=== PATIENT | female | born 1960 | race Caucasian/White ===

== ENCOUNTER 2019-11-01 09:50 | Emergency (ER) | payer OTHER, SELFPAY ==
[2019-11-01] VITALS (9 sets, daily range): BP systolic 116–190; BP diastolic 58–88; PULSE 59–103; RESP 15–27; TEMP 36.1; O2SAT 96–99; BMI 30.3
--- NOTE | 2019-11-01 10:07 | ED.NAVMDI ---
HPI - Nausea/Vomiting/Diarrhea General Chief complaint: Nausea/Vomiting/Diarrhea Stated complaint: diarrhea x21 days Time Seen by Provider: 11/01/19 09:55 Source: patient and family History of Present Illness HPI Narrative: Patient here with . Complains of watery, brown, nonbloody, not black, diarrhea for the past 21 days. 3-8 episodes daily. No dizziness no syncope. Denies abdominal pain. No fever or chills. No sick contacts. No contaminated foods no foreign travel no changes in diet or medications. No relief with [id number] antidiarrheals. Related Data Previous Rx's Medication Instructions Recorded diphenoxylate-atropine [Lomotil] 1 tab PO DAILY #3 tab 11/01/19 potassium chloride [Klor-Con M20] 20 meq PO BID #14 tab 11/01/19 Allergies Allergy/AdvReac Type Severity Reaction Status Date / Time No Known Drug Allergies Allergy Verified 11/01/19 10:09 Review of Systems Review of Systems Narrative: GENERAL: Denies chills, fatigue, malaise, fever, sweats. HEENT: Denies sinus pain, ear pain, sore throat, difficulty swallowing, dizziness. RESPIRATORY: Denies dyspnea, cough, wheezing, hemoptysis, sputum. CARDIOVASCULAR: Denies chest pain, palpitations, orthopnea, edema, GASTROINTESTINAL: Denies nausea, vomiting, abdominal pain, constipation, melena. Complains of diarrhea : Denies dysuria, frequency, incontinence, hematuria, urinary retention. MUSCULOSKELETAL: denies weakness, joint pain, or bony pain SKIN: Denies rash, skin lesions, or other NEUROLOGIC: Denies weakness, headache, numbness, change in speech, confusion, seizures, incoordination. PSYCHIATRIC: No concerning psychosocial issues. ROS Unobtainable: All systems reviewed & are unremarkable except as noted in HPI and below Patient History Social History Smoking Status: Current every day smoker Exam Narrative Exam Narrative: GENERAL: patient appears stated age. Well-nourished, well-developed patient, in no distress, not toxic HEAD: Atraumatic. Normocephalic. EYES: Pupils equal round and reactive. Extraocular motions intact. No scleral icterus. No injection or drainage. ENT: Nose without bleeding, purulent drainage. Throat without erythema, tonsillar hypertrophy or exudate. Airway patent. NECK: Trachea midline. Non tender CARDIOVASCULAR: Regular rate and rhythm without murmurs, gallops, or rubs. RESPIRATORY: Clear to auscultation. Breath sounds equal bilaterally. No wheezes, rales, or rhonchi. GASTROINTESTINAL: Abdomen soft, non-tender, nondistended. No peritoneal signs. Normal bowel sounds EXTREMITIES: No edema or joint tenderness. BACK: Nontender without deformity or crepitance. No flank tenderness. NEURO: AOx3. SKIN: No rash or erythema of visible areas PSYCH: Not anxious, is cooperative Initial Vital Signs Initial Vital Signs: Vital Signs Pulse Rate 103 H 11/01/19 09:55 Blood Pressure 190/88 H 11/01/19 09:55 Pulse Oximetry 98 11/01/19 09:55 Course Orders Ordered: Discontinued Medications Diphenoxylate HCl/Atropine (Lomotil) 2 each PO NOW ONE Stop: 11/01/19 12:19 Last Admin: 11/01/19 12:37 Dose: 2 each Documented by: NAKIA Sodium Chloride (Normal Saline 0.9%) 1,000 mls @ 1,000 mls/hr IV BOLUS ONE Stop: 11/01/19 11:04 Last Infusion: 11/01/19 14:40 Dose: 0 mls/hr Documented by: Admin: 11/01/19 10:49 Dose: 1,000 mls/hr Documented by: NASIMIN Potassium Chloride 40 meq/ (Sodium Chloride) 520 mls @ 130 mls/hr IV NOW ONE Stop: 11/01/19 14:58 Last Infusion: 11/01/19 14:39 Dose: 0 mls/hr Documented by: NAKIA Cosigned by: AXEL Admin: 11/01/19 11:11 Dose: 130 mls/hr Documented by: NAKIA Cosigned by: AXEL Ondansetron HCl (Zofran) 4 mg IV NOW ONE Stop: 11/01/19 10:06 Last Admin: 11/01/19 10:49 Dose: Not Given Documented by: NAVDEEPARTIN Potassium Chloride (Klor-Con M20) 40 meq PO NOW ONE Stop: 11/01/19 10:59 Last Admin: 11/01/19 11:10 Dose: 40 meq Documented by: KSWACKH Reevaluation(s) Reevaluation #1: No diarrhea episodes while here. Patient feeling better after fluid replacement. Time: 13:31 Reevaluation #2: Patient feeling much better after IV fluids. No diarrhea here. Desires discharge home. Time: 14:54 Consultations Consultation #1: Spoke with general surgeon Dr. Barrett... Agrees with plan for discharge home and follow-up with family physician for hypokalemia, patient can follow-up in her office for scheduling for colonoscopy. Time: 13:32 Vital Signs Vital signs: Vital Signs - 8 hr 11/01/19 09:55 11/01/19 09:59 11/01/19 12:03 Temperature 97.0 F L Pulse Rate 103 H 103 H 84 Respiratory Rate 16 Blood Pressure 190/88 H 190/88 H Pulse Oximetry 98 99 96 11/01/19 12:04 11/01/19 12:31 11/01/19 13:00 Temperature Pulse Rate 84 63 64 Respiratory Rate 15 18 Blood Pressure 137/63 134/63 124/61 Pulse Oximetry 96 97 97 11/01/19 13:30 Temperature Pulse Rate 63 Respiratory Rate 27 H Blood Pressure 116/64 Pulse Oximetry MDM - Nausea/Vomiting/Diarrhea Lab Data Attestation: I reviewed the patient's lab results. Result diagrams: 11/01/19 10:13 11/01/19 13:40 Labs: Lab Results 11/01/19 11/01/19 11/01/19 Range/Units 10:13 10:13 13:10 WBC 11.7 H (4.5-11.0) X10^3/uL RBC 4.54 (4.0-5.2) X10^6/uL Hgb 14.4 (12.0-16.0) g/dL Hct 39.9 (36-46) % MCV 88.0 (80-100) fL MCH 31.7 (26-34) PG MCHC 36.1 H (30-36) % RDW 12.5 (11.6-14.8) % Plt Count 363 (150-400) X10^3/uL Neut % (Auto) 61.5 (50-75) % Lymph % (Auto) 27.1 (25-40) % [place] % (Auto) 9.6 (3-14) % Eos % (Auto) 1.1 L (2-4) % Baso % (Auto) 0.7 (0-2) % Neut # (Auto) 7200 H (0891-9775) /uL Lymph # (Auto) 3200 (1749-7689) /uL [place] # (Auto) 1100 H (0-900) /uL Eos # (Auto) 100 (0-450) /uL Baso # (Auto) 100 (0-100) /uL Sodium 136 L (137-145) mmol/L Potassium 2.5 L* (3.4-5.1) mmol/L Chloride 100 (98-107) mmol/L Carbon Dioxide 28 (22-32) mmol/L BUN 10 (7-17) mg/dL Creatinine 0.72 (0.52-1.04) mg/dL Estimated GFR > 60.0 (>60) mL/min BUN/Creatinine Ratio 13.9 (6-22) Glucose 110 H (70-100) mg/dL Calcium 9.3 (8.4-10.2) mg/dL Total Bilirubin 0.5 (0.2-1.3) mg/dL AST 25 (14-36) IU/L ALT 26 (<35) IU/L Alkaline Phosphatase 80 (38-126) U/L Total Protein 7.4 (6.3-8.2) g/dL Albumin 4.3 (3.5-5.0) g/dL Globulin 3.1 (1.7-4.1) g/dL Albumin/Globulin Ratio 1.4 (1.0-2.8) Lipase 46 (23-300) U/L COVID-19 PCR Not detected (Not Detected) 11/01/19 Range/Units 13:40 WBC (4.5-11.0) X10^3/uL RBC (4.0-5.2) X10^6/uL Hgb (12.0-16.0) g/dL Hct (36-46) % MCV (80-100) fL MCH (26-34) PG MCHC (30-36) % RDW (11.6-14.8) % Plt Count (150-400) X10^3/uL Neut % (Auto) (50-75) % Lymph % (Auto) (25-40) % [place] % (Auto) (3-14) % Eos % (Auto) (2-4) % Baso % (Auto) (0-2) % Neut # (Auto) (1940-5559) /uL Lymph # (Auto) (6219-0738) /uL [place] # (Auto) (0-900) /uL Eos # (Auto) (0-450) /uL Baso # (Auto) (0-100) /uL Sodium (137-145) mmol/L Potassium 3.1 L (3.4-5.1) mmol/L Chloride (98-107) mmol/L Carbon Dioxide (22-32) mmol/L BUN (7-17) mg/dL Creatinine (0.52-1.04) mg/dL Estimated GFR (>60) mL/min BUN/Creatinine Ratio (6-22) Glucose (70-100) mg/dL Calcium (8.4-10.2) mg/dL Total Bilirubin (0.2-1.3) mg/dL AST (14-36) IU/L ALT (<35) IU/L Alkaline Phosphatase (38-126) U/L Total Protein (6.3-8.2) g/dL Albumin (3.5-5.0) g/dL Globulin (1.7-4.1) g/dL Albumin/Globulin Ratio (1.0-2.8) Lipase (23-300) U/L COVID-19 PCR (Not Detected) Urine Dip Bedside Urine Glucose Negative Bedside Urine Bilirubin - Negative Bedside Urine Ketone - Negative Urine Specific [place] 1.005 Bedside Urine Occult Blood - Negative Bedside Urine pH 6.5 Bedside Urine Protein - Negative Bedside Urine Urobilinogen - Negative Bedside Urine Nitrite - Negative Bedside Urine Leukocytes - Negative Esterase Imaging Data CT scan - abdomen/pelvis: Radiologist's Impression: [address] [address] [address] Scan Report Signed Patient: Katherine Newell [facility]#: [id number] : [id number]:[id number] Age/Sex: 59 / FDate of Service: 11/01/19 Loc: ED Accession Number: [id number] Procedure: CT abdomen pelvis w con Ordering Provider: Preet Saldana MD PROCEDURE: CT ABDOMEN PELVIS W CON INDICATIONS: IV contrast only/diarrhea TECHNIQUE: After the administration of intravenous contrast, 5 mm thick sections acquired from the diaphragm to the symphysis. 5 mm coronal and sagittal reformats were acquired. For radiation dose reduction, the following was used: automated exposure control, adjustment of mA and/or kV according to patient size. COMPARISON: None. FINDINGS: Image quality: Excellent. ABDOMEN: Lung bases: Lung bases are clear. Heart size is normal. Solid organs: Liver is normal in size and enhancement. Mild hepatic steatosis is seen. Gallbladder is surgically absent. Biliary system is non dilated. Pancreas enhances normally. Spleen is normal in size and enhancement. No adrenal nodules. Kidneys demonstrate normal size and enhancement, without hydronephrosis. Peritoneum and bowel: There is no bowel obstruction. No gross gastric or small bowel wall thickening. Appendix is visualized and is within normal limits. There is suggestion of mild mid to distal descending colon and sigmoid colon wall thickening with narrowing of the lumen and mild pericolonic fat stranding concerning for infectious inflammatory colitis. No free fluid or free air. Sigmoid diverticulosis is seen, no CT evidence of acute diverticulitis. Nodes and vessels: No retroperitoneal or mesenteric adenopathy by size criteria. Aorta and inferior vena cava are normal in size. Miscellaneous: No ventral hernias. PELVIS: Genitourinary: Bladder wall thickness is normal. Miscellaneous: No inguinal hernias or adenopathy. Bones: No suspicious bony lesions. No vertebral body compression fractures. Degenerative disc disease throughout lower thoracic spine and lumbar spine is seen. IMPRESSION: 1. Finding is suggestive of left-sided colitis. No abscess collection. No free fluid or free air. Sigmoid diverticulosis without acute diverticulitis. Normal appendix. 2. Mild hepatic steatosis. Prior cholecystectomy. Dictated by: Chris Baltazar M.D. on 11/01/2019 at 10:35 Approved by: Chris Baltazar M.D. on 11/01/2019 at 10:37 MDM Narrative Medical decision making narrative: Appropriate for discharge home. Potassium improved to 3.1. Patient states she has always date with low potassium and knows about potassium replacement diet. Discharge Plan Departure Patient Disposition: Home Clinical Impression: Colitis, Acute hypokalemia Discharge Date/Time: 11/01/19 15:03 Instructions: DI for Hypokalemia, DI for Colitis Activity Restrictions/Additional Instructions: See family doctor this week for recheck of your potassium levels. Call provided surgery office Dr. Barrett, for scheduling of colonoscopy. Keep well hydrated. Return if worse Prescriptions: New potassium chloride [Klor-Con M20] 20 mEq tablet,ER particles/crystals 20 meq PO BID Qty: 14 RF: 0 diphenoxylate-atropine [Lomotil] 2.5-0.025 mg tablet 1 tab PO DAILY Qty: 3 RF: 0 Referrals: Chanel Barrett MD [Physician] -
--- NOTE | 2019-11-01 10:19 | PC.NURSE ---
Patient reports diarrhea for last 21 days. Reports between 3-8 BM per day. Denies recent change in diet, medications, or prescriptions. Denies abdominal pain. Denies other family members with similar symptoms.
[2019-11-01 10:26] LABS: Add Manual Diff / Slide Review NO; Basophils Absolute Auto 100 /uL (0-100); Basophils Percent Auto 0.7 % (0-2); Eosinophils Absolute Auto 100 /uL (0-450); Eosinophils Percent Auto 1.1 % (2-4); Hematocrit 39.9 % (36-46); Hemoglobin 14.4 g/dL (12.0-16.0); Lymphocytes Absolute Auto 3200 /uL (1100-4500); Lymphocytes Percent Auto 27.1 % (25-40); Mean Corpuscular HGB Conc 36.1 % (30-36); Mean Corpuscular Hemoglobin 31.7 PG (26-34); Monocytes Absolute Auto 1100 /uL (0-900); Monocytes Percent Auto 9.6 % (3-14); Neutrophils Absolute Auto 7200 /uL (1500-7000); Neutrophils Percent Auto 61.5 % (50-75); Platelet Count 363 X10^3/uL (150-400); Red Blood Cell Count 4.54 X10^6/uL (4.0-5.2); Red Cell Distribution Width 12.5 % (11.6-14.8); White Blood Cell Count 11.7 X10^3/uL (4.5-11.0)
[2019-11-01 10:35] LABS: Alanine Aminotransferase 26 IU/L (<35); Albumin 4.3 g/dL (3.5-5.0); Albumin Globulin Ratio 1.4 (1.0-2.8); Alkaline Phosphatase 80 U/L (38-126); Aspartate Aminotransferase 25 IU/L (14-36); BUN Creatinine Ratio 13.9 (6-22); Bilirubin Total 0.5 mg/dL (0.2-1.3); Blood Urea Nitrogen 10 mg/dL (7-17); Calcium 9.3 mg/dL (8.4-10.2); Carbon Dioxide 28 mmol/L (22-32); Chloride 100 mmol/L (98-107); Estimated Glomerular Filt Rate > 60.0 mL/min (>60); Globulin 3.1 g/dL (1.7-4.1); Glucose 110 mg/dL (70-100); HEMOLYSIS < 15 (0-50); Lipase 46 U/L (23-300); Sodium 136 mmol/L (137-145); Total Protein 7.4 g/dL (6.3-8.2)
[2019-11-01 10:41] LABS: Potassium 2.5 mmol/L (3.4-5.1)
[2019-11-01] MEDS: SODIUM CHLORIDE 0.9% 1,000 ML 1000 ML IV (10:49)
[2019-11-01] MEDS: POTASSIUM CHLORIDE 20 MEQ TAB 40 MEQ PO (11:10)
[2019-11-01] MEDS: POTASSIUM CHLORIDE 40 MEQ in SODIUM CHLORIDE 0.9% 500 ML 130 ML IV (11:11)
--- NOTE | 2019-11-01 11:22 | PC.NURSE ---
jerad stated patient has no suspicion for c diff. standard precautions initiated
--- NOTE | 2019-11-01 11:30 | DI.CT.S_ITS ---
PROCEDURE: CT ABDOMEN PELVIS W CON INDICATIONS: IV contrast only/diarrhea TECHNIQUE: After the administration of intravenous contrast, 5 mm thick sections acquired from the diaphragm to the symphysis. 5 mm coronal and sagittal reformats were acquired. For radiation dose reduction, the following was used: automated exposure control, adjustment of mA and/or kV according to patient size. COMPARISON: None. FINDINGS: Image quality: Excellent. ABDOMEN: Lung bases: Lung bases are clear. Heart size is normal. Solid organs: Liver is normal in size and enhancement. Mild hepatic steatosis is seen. Gallbladder is surgically absent. Biliary system is non dilated. Pancreas enhances normally. Spleen is normal in size and enhancement. No adrenal nodules. Kidneys demonstrate normal size and enhancement, without hydronephrosis. Peritoneum and bowel: There is no bowel obstruction. No gross gastric or small bowel wall thickening. Appendix is visualized and is within normal limits. There is suggestion of mild mid to distal descending colon and sigmoid colon wall thickening with narrowing of the lumen and mild pericolonic fat stranding concerning for infectious inflammatory colitis. No free fluid or free air. Sigmoid diverticulosis is seen, no CT evidence of acute diverticulitis. Nodes and vessels: No retroperitoneal or mesenteric adenopathy by size criteria. Aorta and inferior vena cava are normal in size. Miscellaneous: No ventral hernias. PELVIS: Genitourinary: Bladder wall thickness is normal. Miscellaneous: No inguinal hernias or adenopathy. Bones: No suspicious bony lesions. No vertebral body compression fractures. Degenerative disc disease throughout lower thoracic spine and lumbar spine is seen. IMPRESSION: 1. Finding is suggestive of left-sided colitis. No abscess collection. No free fluid or free air. Sigmoid diverticulosis without acute diverticulitis. Normal appendix. 2. Mild hepatic steatosis. Prior cholecystectomy. Dictated by: Chris Baltazar M.D. on 11/01/2019 at 10:35 Approved by: Chris Baltazar M.D. on 11/01/2019 at 10:37
--- NOTE | 2019-11-01 11:37 | PC.NURSE ---
patient unable to give stool sample at this time. states she only has loose stools if she eats anything. Has not had anything to eat since breakfast.
[2019-11-01] MEDS: DIPHENOXYLATE/ATROP 2.5/0.025 TABLET 2 EACH PO (12:37)
--- NOTE | 2019-11-01 13:41 | PC.NURSE ---
drawn by jake rao
[2019-11-01 14:05] LABS: HEMOLYSIS < 15 (0-50); Potassium 3.1 mmol/L (3.4-5.1)
[2019-11-02 18:09] LABS: COVID19 Sendout Not Detected (Not Detected)
== END 2019-11-01 15:03 | disposition home or self-care (01) ==
PROVIDERS: Emergency Provider Emergency Medicine
DX: K52.9 Noninfective gastroenteritis and colitis, unspecified (principal); E87.6 Hypokalemia
CPT/HCPCS: 36415; 74177; 80053; 81003; 83690; 84132; 85025; 87635; 96365; 96366; 99284; J3480; Q9967

== ENCOUNTER 2020-11-30 18:38 | Emergency (ER) | payer OTHER, SELFPAY ==
[2020-11-30 18:59] VITALS: BP 179/81; PULSE 84; RESP 16; TEMP 36.6; O2SAT 98; BMI 28.2
[2020-11-30] MEDS: TET,DIPH,PERTUSS(ACELL),VAC/PF 0.5 ML SYRINGE IM (19:41)
--- NOTE | 2020-11-30 19:50 | ED.WOUNDLAC ---
HPI - Wound/Laceration <JACQUELIN Strickland - Last Filed: 11/30/20 19:58> General Chief Complaint: Wound/Laceration Stated Complaint: RT THUMB SLICED ON MANDOLIN Time Seen by Provider: 11/30/20 19:02 History of Present Illness HPI narrative: 6-year-old female presents to the ED for left thumb tip laceration she reports she sustained while using a mandoline cutting vegetables at 4:30 p.m. today. She immediately placed a dressing but was unable to get the bleeding to stop. She does not know when her last tetanus was. She is not on any anticoagulants. She denies any numbness or tingling, no hand pain, was mostly concerned about the bleeding from the tip of her finger. There is no skin flap, it shaved of the tip of her finger. Related Data Previous Rx's Medication Instructions Recorded diphenoxylate-atropine 2.5 1 tab PO DAILY #3 tab 11/01/19 mg-0.025 mg tablet (Lomotil) potassium chloride 20 mEq 20 meq PO BID #14 tab 11/01/19 tablet,extended release(part/cryst) (Klor-Con M) Allergies Allergy/AdvReac Type Severity Reaction Status Date / Time Penicillins Allergy Verified 11/30/20 19:13 Review of Systems <JACQUELIN Strickland - Last Filed: 11/30/20 19:58> Review of Systems Narrative: General: denies fever, chills Head/Neck: denies headache, neck pain Eyes: denies visual changes, eye pain Cardio: denies chest pain, palpitations Respiratory: denies shortness of breath, cough GI: denies abdominal pain, nausea, vomiting, or diarrhea : denies dysuria, hematuria MSK: denies joint pain, muscle weakness Skin: denies rash, itching Neuro: denies numbness, tingling Patient History <JACQUELIN Strickland - Last Filed: 11/30/20 19:58> Social History Smoking Status: Current every day smoker Smoking Status: Current every day smoker alcohol intake frequency: a few times a week Substance Use Type: does not use Exam <JACQUELIN Strickland - Last Filed: 11/30/20 19:58> Narrative Exam Narrative: Independently reviewed vitals signs and nursing notes. General: Awake, alert, nontoxic, no cardiorespiratory distress Head/Neck: Atraumatic, neck full range of motion Eyes: EOMI, conjunctiva normal Nose: nares patent, no rhinorrhea Mouth/Throat: moist mucus membranes Cardio: Regular rate and rhythm, no peripheral edema Respiratory: respirations unlabored without wheezing, stridor, or rales. No retractions. GI: Abdomen soft, nontender MSK: Moves all extremities, neurovascularly intact Skin: Normal capillary refill, no rash, left thumb with very small avulsion through dermis only. No subcutaneous tissue visible, no bone is visible, nail is intact, hemostasis achieved with pressure dressing Neuro: Normal speech and cognition, normal gait Initial Vital Signs Initial Vital Signs: Vital Signs Temperature 97.9 F 11/30/20 18:59 Pulse Rate 84 11/30/20 18:59 Respiratory Rate 16 11/30/20 18:59 Blood Pressure 179/81 H 11/30/20 18:59 Pulse Oximetry 98 11/30/20 18:59 <Melissa Macias DO - Last Filed: 12/01/20 03:17> Initial Vital Signs Initial Vital Signs: Vital Signs Temperature 97.9 F 11/30/20 18:59 Pulse Rate 84 11/30/20 18:59 Respiratory Rate 16 11/30/20 18:59 Blood Pressure 179/81 H 11/30/20 18:59 Pulse Oximetry 98 11/30/20 18:59 Procedures <JACQUELIN Strickland - Last Filed: 11/30/20 19:58> Laceration Repair Laceration 1: Time of procedure: 18:45 Site: other (left thumb) Size (cm): 0.5 Description: clean Depth: simple, single layer Skin layer closed with: other (surgicel applied, bacitracin, wrapped with gauze and light Coban dressing. Hemostasis achieved prior to dressing application.) Course <JACQUELIN Strickland - Last Filed: 11/30/20 19:58> Orders Ordered: Discontinued Medications Diphtheria/Tetanus/Acell Pertussis (Tet,Diph,Pertuss(Acell),Vac/Pf 0.5 Ml Syringe) 0.5 ml IM .ONCE ONE Stop: 11/30/20 19:02 Last Admin: 11/30/20 19:41 Dose: 0.5 ml Documented by: HAVEN Vital Signs Vital signs: Vital Signs - 8 hr 11/30/20 18:59 Temperature 97.9 F Pulse Rate 84 Respiratory Rate 16 Blood Pressure 179/81 H Pulse Oximetry 98 <Melissa Macias DO - Last Filed: 12/01/20 03:17> Orders Ordered: Discontinued Medications Diphtheria/Tetanus/Acell Pertussis (Tet,Diph,Pertuss(Acell),Vac/Pf 0.5 Ml Syringe) 0.5 ml IM .ONCE ONE Stop: 11/30/20 19:02 Last Admin: 11/30/20 19:41 Dose: 0.5 ml Documented by: HAVEN Vital Signs Vital signs: Vital Signs - 8 hr 11/30/20 18:59 Temperature 97.9 F Pulse Rate 84 Respiratory Rate 16 Blood Pressure 179/81 H Pulse Oximetry 98 MDM - Wound/Laceration <JACQUELIN Strickland - Last Filed: 11/30/20 19:58> MDM Narrative Medical decision making narrative: 60-year-old female presents to the ED for distal left thumb skin avulsion. Hemostasis achieved with pressure dressing, Surgicel applied with bacitracin and wrapped with gauze. Tetanus vaccination given today. Patient is appropriate and amenable to discharge home. Vital signs are stable on repeat examination is unremarkable. Patient has been informed of results. Patient has been given strict return to ER precautions for any new or worsening symptoms. Patient understands to follow up closely with outpatient providers as instructed. Patient understands plan and agrees to discharge home. All questions and concerns answered at this time. Discharge Plan Departure Patient Disposition: Home Clinical Impression: Avulsion of skin Instructions: DI for Minor Laceration Activity Restrictions/Additional Instructions: *You have been diagnosed with a skin avulsion/laceration. It was nice to meet you today. Leave this dressing on for the next 24 hours of possible. If it soaks through, place a new pressure dressing on until the bleeding is controlled. Keep this wound clean, covered at work, and dry for the most part. You may clean your wound twice a day or if it is contaminated. If you develop any swelling, red streaking, warmth around the injury please return to emergency department or see your PCP for antibiotics. *What to do: *Please continue to take your regular medications as directed. [ ] New medication prescriptions sent to your pharmacy: [ ] [ ] New medication written as a paper prescription [ x] No new medications given *Please follow up with your primary care provider in 2-3 days, call for an appointment. Let them know you were seen in the Emergency Department and that we ask that you be seen in follow up. We will electronically transmit a record of today's note if your PCP is in our system *If you do not have a primary care provider please contact the [facility] Resource line at [phone]. They will ask some questions about your medical history and help get you set up with a doctor in the community. *Return to Emergency Department if you should have any new, worsening or concerning symptoms, such as [fever greater than 101F, chills, worsening pain, persistent vomiting or other bothersome symptoms] Prescriptions: No Action potassium chloride [Klor-Con M20] 20 mEq tablet,ER particles/crystals 20 meq PO BID Qty: 14 RF: 0 diphenoxylate-atropine [Lomotil] 2.5-0.025 mg tablet 1 tab PO DAILY Qty: 3 RF: 0 <Melissa Macias DO - Last Filed: 12/01/20 03:17> Cosign ED Attending Cosradhaature Attestation: I was immediately available in the department for consultation. Documentation has been reviewed. I agree with assessment and plan.
== END 2020-11-30 19:55 | disposition home or self-care (01) ==
PROVIDERS: Emergency Provider Nurse Practitioner Critical Care Medicine
DX: S61.011A Laceration without foreign body of right thumb without damage to nail, initial encounter (principal); W26.8XXA Contact with other sharp object(s), not elsewhere classified, initial encounter; Z23 Encounter for immunization
CPT/HCPCS: 90471; 99283; 90715